=== PATIENT | male | born 1995 | race African-American/Black ===

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

== ENCOUNTER 2019-01-07 01:36 | Emergency (ER) | payer OTHER ==
[~2019-01-07] VITALS: Ht 182.9 cm; Wt 113.4 kg
[~2019-01-07 01:36] MED LIST: CEPH500C PO; OXYC1TAB15 PO
[2019-01-07 01:38] VITALS: BP 121/66
[2019-01-07] MEDS ORDERED: MELO7.5T29 PO (02:18)
--- NOTE | 2019-01-07 02:18 | PHYS DOC ---
Past Medical History Past Medical History: No Pertinent History Past Surgical History: No Surgical History, Tonsillectomy Alcohol Use: Rarely Drug Use: None, Marijuana Adult General Chief Complaint Chief Complaint: HEAD INJURY/TRAUMA HPI HPI Patient is a 23 year old male who presents with head injury. Patient was walking, slipped on the ice approximately an hour prior to arrival. No loss of consciousness, no nausea or vomiting, no home medicines been taken. No weakness , numbness, tingling, paresthesias. No additional injury. No neck pain. Pain is mild to moderate. [] Review of Systems Review of Systems Constitutional: Denies fever or chills [] Eyes: Denies change in visual acuity, redness, or eye pain [] HENT: Denies nasal congestion or sore throat [] Respiratory: Denies cough or shortness of breath [] Cardiovascular: No chest pain or palpitations[] GI: Denies abdominal pain, nausea, vomiting, bloody stools or diarrhea [] : Denies dysuria or hematuria [] Musculoskeletal: Denies back pain or joint pain [] Integument: Denies rash or skin lesions [] Neurologic: Denies headache, focal weakness or sensory changes [] Endocrine: Denies polyuria or polydipsia [] All other systems were reviewed and found to be within normal limits, except as documented in this note. Allergies Allergies Allergies Coded Allergies Type Severity Reaction Last Updated Verified No Known Drug Allergies 12/08/16 No Physical Exam Physical Exam Constitutional: Well developed, well nourished, no acute distress, non-toxic appearance. [] HENT: Normocephalic, atraumatic, bilateral external ears normal, oropharynx moist, no oral exudates, nose normal. No head tenderness to palpation, no hemotympanums [] Eyes: PERRLA, EOMI, conjunctiva normal, no discharge. [] Neck: Normal range of motion, no tenderness, supple, no stridor. [] Cardiovascular:Heart rate regular rhythm, no murmur [] Lungs & Thorax: Bilateral breath sounds clear to auscultation [] Abdomen: Bowel sounds normal, soft, no tenderness, no masses, no pulsatile masses. [] Skin: Warm, dry, no erythema, no rash. [] Back: No tenderness, no CVA tenderness. [] Extremities: No tenderness, no cyanosis, no clubbing, ROM intact, no edema. [] Neurologic: Alert and oriented X 3, normal motor function, normal sensory function, no focal deficits noted. [] Psychologic: Affect normal, judgement normal, mood normal. [] EKG EKG [] Radiology/Procedures Radiology/Procedures [] Course & Med Decision Making Course & Med Decision Making Pertinent Labs and Imaging studies reviewed. (See chart for details) Medical decision making: Based on the [place] head injury choosing wisely criteria patient does not meet criteria for needing a head CT. Discussed this with the patient and his partner who voiced understanding. All questions were answered. Patient was discharged in improved condition.[] Dragon Disclaimer Dragon Disclaimer This electronic medical record was generated, in whole or in part, using a voice recognition dictation system. Departure Departure Impression: Primary Impression: Closed head injury Disposition: 01 HOME, SELF-CARE Condition: IMPROVED Patient Instructions: Head Injury, Adult Additional Instructions: Follow-up with your regular doctor in 2 days. If you do not have regular doctor , list of local clinics will be provided for you. Return to the ER if worsening pain, nausea vomiting, or any other concerns. Scripts Meloxicam (MELOXICAM) 7.5 Mg Tablet 7.5 MG PO DAILY, #20 TAB Prov: MARLO VICENTE DO 01/07/19 Problem Qualifiers Primary Impression: Closed head injury Encounter type: initial encounter Qualified Codes: S09.90XA - Unspecified injury of head, initial encounter MARLO VICENTE DO Jan 07, 2019 02:18
== END 2019-01-07 02:35 | disposition home or self-care (01) ==
LOC: ER 01:36
DX: S09.8XXA Other specified injuries of head, initial encounter (principal); Z98.890 Other specified postprocedural states; W00.0XXA Fall on same level due to ice and snow, initial encounter; Y93.01 Activity, walking, marching and hiking; Y92.89 Other specified places as the place of occurrence of the external cause; Y99.8 Other external cause status
CPT/HCPCS: 99284